=== PATIENT | male | born 1960 | race Caucasian/White ===

== ENCOUNTER 2016-10-21 10:31 | Emergency (ER) | payer OTHER ==
[2016-10-21 11:03] LABS: Hematocrit 40.8 % (42.0-52.0); Hemoglobin 14.2 gm/dL (13.5-18.0); Mean Cell Volume 89.1 fl (78-100); Mean Corpuscular Hgb Conc 34.8 g/dl (32-36); Neutrophil # 2.6 K/mm3 (1.3-6.0); Neutrophil % 63.7 % (42-75.0); Platelet Count 212 K/mm3 (150-450); Red Blood Count 4.58 M/mm3 (4.7-6.0); Red Cell Distribution Width 12.5 % (11.5-14.0)
--- NOTE | 2016-10-21 11:03 | ERNOTE ---
Chest Pain/Cardiac HPI Chief Complaint: Chest Pain Time Seen by Provider: 10/21/16 11:02 Source: patient Exam Limitations: no limitations Immunizations: IMMUNIZATION HX Immunizations Up to Date Yes History of Influenza Vaccine Yes Allergies/Adverse Reactions: Allergies No Known Allergies Allergy (Unverified 10/21/16 10:52) Home Medications: HOME MEDICATIONS Amitriptyline HCl 100 mg PO HS 10/21/16 [Last Taken Unknown] Atazanavir Sulfate [Reyataz] 300 mg PO DAILY 10/21/16 [Last Taken Unknown] Benztropine Mesylate 1 mg PO HS 10/21/16 [Last Taken Unknown] Emtricitabine/Tenofovir (Tdf) [Truvada 200 mg-300 mg Tablet] 1 each PO DAILY 12/02 [Last Taken Unknown] Naproxen [Naprosyn] 500 mg PO DAILY 10/21/16 [Last Taken Unknown] Psyllium Husk [Konsyl] 6 gm PO HS 10/21/16 [Last Taken Unknown] Ritonavir [Norvir] 100 mg PO DAILY 10/21/16 [Last Taken Unknown] Tamsulosin HCl [Flomax] 0.4 mg PO HS 10/21/16 [Last Taken Unknown] Narrative: Patient was sucking on a cough drop when he accidentally swallowed it. He denies any significant coughing but shortly after that started to have severe chest pain. He received aspirin and nitro at [facility], a few minutes later the pain resolved. He denies any pain at this point, no cardiac history Date (Duration): 10/21/16 Time (Timing): 09:30 Timing: resolved prior to arrival Severity/Quality: severe Location: central Chest Pain Radiation: no radiation Nitro Today/Relief: 0.4 mg x 1 Aspirin Treatment Today: provided by EMS Associated Symptoms: Present: dizziness. Absent: headache, heartburn, nausea, vomiting Prior Chest Pain/Cardiac Workup: Denies: prior chest pain Prior Treatment: Denies: recently seen, currently on antibiotics Review of Systems - Review of Systems Constitutional: Absent: recent illness, fever ENT: Absent: sore throat Respiratory: Present: cough - slight, dry. Absent: shortness of breath Cardiology: Present: See HPI Gastrointestinal/Abdominal: Absent: nausea, vomiting, diarrhea, abdominal pain Genitourinary: Present: no symptoms reported Musculoskeletal: Present: no symptoms reported - Patient's Past Medical History Patient History - Medical: GERD Patient History - Cardiac/Respiratory: No pertinent hx Patient History - Cancer: No Hx of Cancer Patient History - Surgical Procedures: Cataracts Patient History - Other: HIV - Social History Living Situations: other - ISP Psych History: Hx of Anxiety Smoking Status: Former smoker Have you smoked in the past 12 months: No Alcohol Use: none Drug Use: heroin - Immunizations Immunizations Up to Date: Yes History of Influenza Vaccine: Yes Physical Exam - Physical Exam General Appearance: Present: wd/wn, alert, no apparent distress Ears, Nose, Throat: Present: normal pharynx Respiratory: Present: no respiratory distress, normal breath sounds, no accessory muscle use, lungs clear Cardiovascular/Chest: Present: regular rate, rhythm, no murmur Gastrointestinal/Abdominal: Present: normal bowel sounds, nontender, nondistended, soft Extremity Exam: Present: no edema Neurological Exam: Present: alert, oriented, normal mood/affect ED Progress - Results and Orders Patient's Lab Results:: I have reviewed the patient's lab results. - Vital Signs Patient's Vital Signs:: I have reviewed the patient's vital signs. Vital Signs: Vital Signs 10/21/16 10/21/16 10:38 10:41 Temperature 36.5 C Pulse Rate 95 87 Respiratory 18 Rate Blood Pressure 121/87 O2 Sat by Pulse 98 Oximetry - EKG EKG: NSR, nonspecific ST T wave changes EKG read: Interp. by me - X-Ray X-Ray #1 X-Ray: chest - chronic changes Interpretation: Reviewed by me - Progress/Reassessment Chief Complaint: Chest Pain Progress Note-Subjective: 10/21/16 11:54 discussed results with patient, drinking water Departure - Departure Clinical Impression: Chest pain Qualifiers: Chest pain type: other chest pain Qualified Code(s): R07.89 - Other chest pain Disposition: Isp Condition: Good
[2016-10-21 11:16] LABS: Prothrombin Time (Patient) 10.5 Seconds (9.4-11.4)
[2016-10-21 11:23] LABS: ALT 20 U/L (19-67); AST 20 U/L (0-48); Albumin * 3.9 gm/dl (3.4-5.0); Alkaline Phosphatase * 79 U/L (50-170); Anion Gap 12.6 mmol/L (6.8-13.8); BUN/Creatinine Ratio 19.5 (9.0-21.6); Bilirubin, Total 3.7 mg/dL (0.0-1.1); Blood Urea Nitrogen 16 mg/dL (6-23); Ca. Corrected For Albumin 8.1 mg/dL (8.4-10.2); Calcium * 8.3 mg/dL (7.9-10.9); Carbon Dioxide 25.1 mmol/L (24-32.6); Chloride 104 mmol/L (97-106); Glucose * 90 mg/dL (70-110); Potassium 3.7 mmol/L (3.4-4.6); Sodium 138 mmol/L (132-142); Total Protein 7.1 gm/dL (6.2-8.2)
[2016-10-21 11:26] LABS: Troponin I Less than 0.017 ng/ml (0.00-0.10)
[2016-10-21 11:31] LABS: INR 1.01 INR (0.90-1.10); Partial Thrombolplastin Time 28.8 Seconds (24-32)
--- OUTSIDE RECORDS SUMMARY | 2016-10-21 12:04 | XMS REPORT | Continuity of Care Document ---
:1960 Author Organization [employer] [place] [address] Care Team Providers Name Role Phone Crescencio Aguayo Primary Care Provider [phone] Source Comments This disclosure is being made pursuant to the [employer] program and maynot contain all information available regarding this patient.[facility] Active Allergies and Adverse Reactions No Known Allergies Current Medications Be aware that medications may not be up to date as of this document. Alwaysverify current medications with the patient. Prescription Sig. Disp. Refills Start Date End Date Status amitriptyline (ELAVIL) 50 Take 50 mg by Active MG tablet mouth nightly. Active Problems Not on file Social History Tobacco Use Types Packs/Day Years Used Date Current Every Day Smoker 1.5 35 Smokeless Tobacco: Never Used Alcohol Use Drinks/Week oz/Week Comments Yes 2 Shots of liquor 1.8 1 Cans of beer Last Filed Vital Signs Vital Sign Reading Time Taken Blood Pressure 129/92 12/28/2013 6:31 PM CDT Pulse 99 12/28/2013 6:31 PM CDT Temperature 36.7 C (98 F) 12/28/2013 6:31 PM CDT Respiratory Rate 22 12/28/2013 6:31 PM CDT Height - - Weight - - Body Mass Index - - Oxygen Saturation 97% 12/28/2013 6:31 PM CDT Plan of Care Health Maintenance Due Date Last Done Comments Retired-Pertussis Vaccine Adult 1979 Retired-Tetanus Vaccine Adult 1979 Colonoscopy 2010 Well Adult Visit 2010 Retired-INFLUENZA VACCINE 03/19/2015 Results from Last 3 Months Not on file
[2016-10-21 17:18] VITALS: BP 113/72
== END 2016-10-21 11:15 | disposition home or self-care (01) ==
LOC: ER 10:31
DX: R07.89 Other chest pain (principal)